=== PATIENT | male | born 1990 | race Caucasian/White ===

== ENCOUNTER 2021-08-18 08:23 | Outpatient (REF) | payer BC, SELFPAY ==
[2021-08-18 09:00] LABS: IDNOW Serial# 08D9AD1C
[2021-08-18 09:01] LABS: COVID-19 Test Positive (Negative)
== END 2021-08-18 08:24 | disposition home or self-care (01) ==
LOC: HO.LAB 08:23
PROVIDERS: Visit Provider Internal Medicine
DX: Z20.822 Contact with and (suspected) exposure to COVID-19 (principal)
CPT/HCPCS: 87635; C9803

== ENCOUNTER 2022-01-08 08:02 | Outpatient (REF) | payer BC, SELFPAY ==
[2022-01-08 09:09] LABS: COVID-19 Test Negative (Negative); IDNOW Serial# 55D5AD1C
== END 2022-01-08 08:03 | disposition home or self-care (01) ==
LOC: HO.LAB 08:02
PROVIDERS: Visit Provider Internal Medicine
DX: Z20.822 Contact with and (suspected) exposure to COVID-19 (principal)
CPT/HCPCS: 87635; C9803